=== PATIENT | male | born 1980 | race Hispanic/Latino ===

== ENCOUNTER 2020-05-30 19:20 | Emergency (ER) | payer SELFPAY ==
[2020-05-30] MEDS ORDERED: ACETAMINOPHEN-CODEINE 300/30MG TAB ONE ×2 (19:51→20:57)
[2020-05-30] MEDS ORDERED: DEXAMETHASONE SOD PHOSPHATE 10MG/ML 1ML VIAL ONE (20:23)
[2020-05-30] MEDS ORDERED: CEFTRIAXONE SODIUM 1 GM ONE (20:23)
[2020-05-30] MEDS ORDERED: AZITHROMYCIN 250 MG TABLET PO ONE (20:24)
[2020-05-30] MEDS ORDERED: SODIUM CHLORIDE 0.9% 1000ML 2,000 ML IV ONE (20:24)
[2020-05-30 20:27] LABS: HEMATOCRIT 43.3 % (42-54); LYMPHOCYTES % (AUTO) 14.5 % (21.0-51.0); MEAN CORPUSCULAR HEMOGLOBIN 28.5 pg (27.0-33.0); MEAN CORPUSCULAR HGB CONC 33.7 g/dL (32.0-36.0); MEAN CORPUSCULAR VOLUME 84.4 fL (79-99); NEUTROPHILS % (AUTO) 77.3 % (40.0-77.0); PLATELET COUNT (AUTO) 155 K/uL (130-400); RED BLOOD CELL COUNT(AUTO) 5.13 MIL/uL (4.50-6.20); RED CELL DISTRIBUTION WIDTH 13.2 % (11.0-15.5); WHITE BLOOD COUNT (AUTO) 4.9 K/uL (4.8-10.8)
[2020-05-30 20:37] LABS: APPEARANCE,URINE Clear (CLEAR); BILIRUBIN,URINE Negative (NEGATIVE); COLOR,URINE Yellow (YELLOW); GLUCOSE, URINE (UA) Negative (NEGATIVE); KETONES,URINE Negative (NEGATIVE); LEUKOCYTE ESTERASE ,URINE Negative (NEGATIVE); NITRATE,URINE Negative (NEGATIVE); OCCULT BLOOD,URINE Negative (NEGATIVE); PROTEIN,URINE POS 2+ mg/dL (NEGATIVE)
[2020-05-30 20:38] LABS: INR 1.04 (0.85-1.15); PROTHROMBIN TIME 11.1 SEC (9.6-11.6)
[2020-05-30 20:39] LABS: PARTIAL THROMBOPLASTIN TIME 32.1 SEC (26.3-35.5)
[2020-05-30 20:47] LABS: B-TYPE NATRIURETIC PEPTIDE 21 pg/mL (0-100)
[2020-05-30 20:50] LABS: CREATININE 1.1 mg/dL (0.5-1.5)
[2020-05-30 20:53] LABS: BACTERIA,URINE Few /HPF (None Seen); MUCUS,URINE Moderate LPF (None Seen); RBC,URINE 0-1 /HPF (0-1); SQUAMOUS EPITHELIAL CELL,UR Few /HPF (0-2); WBC,URINE 0-1 /HPF (0-1)
[2020-05-30 20:55] LABS: ALBUMIN 3.9 g/dL (3.5-5.0); BILIRUBIN,TOTAL 0.4 mg/dL (0.2-1.0); TOTAL PROTEIN, SERUM 7.9 g/dL (6.0-8.3)
[2020-05-30 21:00] LABS: RAPID GROUP A STREP NEGATIVE (NEGATIVE)
[2020-05-30 21:28] LABS: ABG BASE EXCESS -1.1 mmol/L (-2.0-3.0); ABG HCO3 22.6 mmol/L (21.0-28.0); ABG OXYGEN SATURATION 94.2 % (95.0-99.0); ABG PCO2 35 mmHg (35-48)
== END 2020-05-30 21:57 | disposition home or self-care (01) ==
LOC: EDH 19:20
DX: U07.1 COVID-19 (principal); E86.0 Dehydration
CPT/HCPCS: 36415; 36600; 71045; 80053; 81001; 82550; 82803; 83605; 83880; 84145; 84484; 85025; 85610; 85730; 87040 ×2; 87426; 87804 ×2; 87880; 93005; 96374; 96375; 99285; J0696; J1100; J7030

== ENCOUNTER 2020-06-02 17:39 | Emergency (ER) | payer OTHER, SELFPAY ==
[2020-06-02 18:44] LABS: BASOPHILS % (AUTO) 0.2 % (0.0-5.0); HEMATOCRIT 45.7 % (42-54); MEAN CORPUSCULAR HEMOGLOBIN 29.1 pg (27.0-33.0); MEAN CORPUSCULAR HGB CONC 33.9 g/dL (32.0-36.0); MEAN CORPUSCULAR VOLUME 85.9 fL (79-99); MONOCYTES % (AUTO) 5.6 % (3.0-13.0); NEUTROPHILS % (AUTO) 87.8 % (40.0-77.0); PLATELET COUNT (AUTO) 229 K/uL (130-400); RED BLOOD CELL COUNT(AUTO) 5.32 MIL/uL (4.50-6.20); RED CELL DISTRIBUTION WIDTH 13.3 % (11.0-15.5); WHITE BLOOD COUNT (AUTO) 10.3 K/uL (4.8-10.8)
[2020-06-02] MEDS ORDERED: GUAIFENESIN-CODEINE 5 ML SYRUP ONE (18:44)
[2020-06-02 19:10] LABS: ALBUMIN 3.8 g/dL (3.5-5.0); BILIRUBIN,TOTAL 0.6 mg/dL (0.2-1.0); CRP QUANTITATIVE 130.5 mg/L (0.00-9.0); TOTAL PROTEIN, SERUM 9.2 g/dL (6.0-8.3)
[2020-06-02 19:15] LABS: B-TYPE NATRIURETIC PEPTIDE 23 pg/mL (0-100)
== END 2020-06-02 19:25 | disposition home or self-care (01) ==
LOC: EDH 17:39
DX: U07.1 COVID-19 (principal)
CPT/HCPCS: 36415; 71045; 80053; 83880; 84484; 85025; 86140

== ENCOUNTER 2020-06-04 16:48 | Inpatient (IN) | payer OTHER, SELFPAY ==
[~2020-06-04] VITALS: Ht 172.7 cm; Wt 87.1 kg
[2020-06-04 17:16] LABS: ABG BASE EXCESS 0.3 mmol/L (-2.0-3.0); ABG HCO3 23.4 mmol/L (21.0-28.0); ABG OXYGEN SATURATION 93.1 % (95.0-99.0); ABG PCO2 34 mmHg (35-48)
[2020-06-04] MEDS ORDERED: ACETAMINOPHEN WITH CODEINE 1 TAB TAB ONE (17:31)
[2020-06-04] MEDS ORDERED: LORAZEPAM 0.5 MG TABLET ONE (17:31)
[2020-06-04 17:36] LABS: BASOPHILS % (AUTO) 0.1 % (0.0-5.0); HEMATOCRIT 42.7 % (42-54); LYMPHOCYTES % (AUTO) 5.7 % (21.0-51.0); MEAN CORPUSCULAR HGB CONC 33.5 g/dL (32.0-36.0); MEAN CORPUSCULAR VOLUME 83.6 fL (79-99); MONOCYTES % (AUTO) 4.1 % (3.0-13.0); NEUTROPHILS % (AUTO) 89.1 % (40.0-77.0); PLATELET COUNT (AUTO) 314 K/uL (130-400); RED BLOOD CELL COUNT(AUTO) 5.11 MIL/uL (4.50-6.20); RED CELL DISTRIBUTION WIDTH 13.3 % (11.0-15.5); WHITE BLOOD COUNT (AUTO) 9.6 K/uL (4.8-10.8)
[2020-06-04 17:46] LABS: INR 1.07 (0.85-1.15); PROTHROMBIN TIME 11.4 SEC (9.6-11.6)
[2020-06-04 17:47] LABS: PARTIAL THROMBOPLASTIN TIME 26.6 SEC (26.3-35.5)
[2020-06-04 17:52] LABS: CREATININE 0.9 mg/dL (0.5-1.5); POTASSIUM 4.2 mmol/L (3.5-5.1)
[2020-06-04 17:56] LABS: BILIRUBIN,TOTAL 0.7 mg/dL (0.2-1.0); TOTAL PROTEIN, SERUM 8.5 g/dL (6.0-8.3)
[2020-06-04 18:10] LABS: B-TYPE NATRIURETIC PEPTIDE 11 pg/mL (0-100)
[2020-06-04] MEDS ORDERED: GUAIFENESIN-CODEINE 5 ML SYRUP PO PRN (22:15)
[2020-06-04] MEDS: DEXAMETHASONE SOD PHOSPHATE 4 MG/ML 1ML VIAL IVP SCH (22:15)
[2020-06-04] MEDS ORDERED: ONDANSETRON 4MG INJ IV PRN (22:15)
[2020-06-04] MEDS: DOXYCYCLINE 100MG+NS 250ML IV SCH (22:15)
[2020-06-04] MEDS ORDERED: ERGOCALCIFEROL (VITAMIN D2) 50,000 UNIT CAPSULE PO ONE (22:15)
[2020-06-04] MEDS: CEFTRIAXONE 1G VIAL IVP SCH (22:15)
[2020-06-04] MEDS ORDERED: PHARMACY COMMUNICATION MISC SCH (22:45)
[2020-06-04 23:30] LABS: HEMOGLOBIN A1C 6.1 % (4.0-6.0)
[2020-06-04] MEDS ORDERED: DEXAMETHASONE SOD PHOSPHATE 10MG/ML 1ML VIAL ONE (23:38)
[2020-06-04] MEDS ORDERED: CEFTRIAXONE 1G VIAL ONE (23:39)
[2020-06-04] MEDS ORDERED: DOXYCYCLINE 100MG+NS 250ML 250 ML IV ONE (23:39)
[2020-06-04] MEDS ORDERED: ERGOCALCIFEROL (VITAMIN D2) 50,000 UNIT CAPSULE ONE (23:39)
[2020-06-05] MEDS ORDERED: 0.9% NACL 250ML 250 ML IV ONE (02:14)
[2020-06-05 04:48] LABS: BASOPHILS % (AUTO) 0.4 % (0.0-5.0); HEMATOCRIT 42.2 % (42-54); LYMPHOCYTES % (AUTO) 9.3 % (21.0-51.0); MEAN CORPUSCULAR HEMOGLOBIN 28.4 pg (27.0-33.0); MEAN CORPUSCULAR HGB CONC 33.6 g/dL (32.0-36.0); MEAN CORPUSCULAR VOLUME 84.4 fL (79-99); MONOCYTES % (AUTO) 4.7 % (3.0-13.0); NEUTROPHILS % (AUTO) 84.6 % (40.0-77.0); PLATELET COUNT (AUTO) 298 K/uL (130-400); RED CELL DISTRIBUTION WIDTH 13.3 % (11.0-15.5); WHITE BLOOD COUNT (AUTO) 8.4 K/uL (4.8-10.8)
[2020-06-05] MEDS ORDERED: GUAIFENESIN-CODEINE 5 ML SYRUP ONE ×2 (05:02→22:59)
[2020-06-05 05:16] LABS: ALBUMIN 3.3 g/dL (3.5-5.0); BILIRUBIN,TOTAL 0.6 mg/dL (0.2-1.0); CREATININE 0.9 mg/dL (0.5-1.5); POTASSIUM 4.3 mmol/L (3.5-5.1); TOTAL PROTEIN, SERUM 7.8 g/dL (6.0-8.3)
[2020-06-05] MEDS ORDERED: ASCORBIC ACID 500 MG TAB ONE (08:33)
[2020-06-05] MEDS ORDERED: CEFTRIAXONE 1G VIAL ONE ×2 (08:34→22:50)
[2020-06-05] MEDS ORDERED: ZINC SULFATE 220 CAPSULE ONE (08:34)
[2020-06-05] MEDS ORDERED: ENOXAPARIN SODIUM 40 MG/0.4 ML SYRINGE SQ ONE (08:34)
[2020-06-05] MEDS ORDERED: FAMOTIDINE 20MG TAB ONE (08:34)
[2020-06-05] MEDS ORDERED: 0.9%NACL 100ML 100 ML IV ONE (08:35)
[2020-06-05] MEDS: ASCORBIC ACID 500 MG TAB PO SCH (09:00)
[2020-06-05] MEDS: ZINC SULFATE 220 CAPSULE PO SCH (09:00)
[2020-06-05] MEDS: FAMOTIDINE 20MG TAB PO SCH ×2 (09:00→21:00)
[2020-06-05] MEDS ORDERED: ENOXAPARIN SODIUM 40 MG/0.4 ML SYRINGE SQ SCH (09:00)
[2020-06-05] MEDS: CEFTRIAXONE 1G VIAL IVP SCH ×2 (10:15→22:15)
[2020-06-05] MEDS: DOXYCYCLINE 100MG+NS 250ML IV SCH ×2 (10:15→22:15)
[2020-06-05] MEDS ORDERED: DOXYCYCLINE 100MG+NS 250ML 250 ML IV ONE ×2 (12:16→22:50)
[2020-06-05] MEDS ORDERED: REMDESIVIR (EUA) 520 200 MG in 0.9% NACL 250ML 250 ML IV ONE (16:00)
[2020-06-05] MEDS ORDERED: COMPOUND IV REFRIGERATED 1 EACH IVSOLN MISC PRN (16:00)
[2020-06-05] MEDS: DEXAMETHASONE SOD PHOSPHATE 4 MG/ML 1ML VIAL IVP SCH (22:15)
[2020-06-05] MEDS ORDERED: DEXAMETHASONE SOD PHOSPHATE 4 MG/ML 1ML VIAL ONE (22:50)
[2020-06-06 04:40] LABS: BASOPHILS % (AUTO) 0.4 % (0.0-5.0); HEMATOCRIT 44.9 % (42-54); LYMPHOCYTES % (AUTO) 11.8 % (21.0-51.0); MEAN CORPUSCULAR HEMOGLOBIN 28.3 pg (27.0-33.0); MEAN CORPUSCULAR VOLUME 85.9 fL (79-99); PLATELET COUNT (AUTO) 366 K/uL (130-400); RED BLOOD CELL COUNT(AUTO) 5.23 MIL/uL (4.50-6.20); RED CELL DISTRIBUTION WIDTH 13.3 % (11.0-15.5); WHITE BLOOD COUNT (AUTO) 8.5 K/uL (4.8-10.8)
[2020-06-06 05:02] LABS: BILIRUBIN,TOTAL 0.4 mg/dL (0.2-1.0); CREATININE 0.9 mg/dL (0.5-1.5); CRP QUANTITATIVE 66.2 mg/L (0.00-9.0); POTASSIUM 4.6 mmol/L (3.5-5.1); TOTAL PROTEIN, SERUM 8.2 g/dL (6.0-8.3)
[2020-06-06] MEDS: PHARMACY COMMUNICATION MISC SCH (06:00)
[2020-06-06] MEDS: ZINC SULFATE 220 CAPSULE PO SCH (09:00)
[2020-06-06] MEDS: ASCORBIC ACID 500 MG TAB PO SCH (09:00)
[2020-06-06] MEDS: FAMOTIDINE 20MG TAB PO SCH ×2 (09:00→21:00)
[2020-06-06] MEDS ORDERED: ASCORBIC ACID 500 MG TAB ONE (09:01)
[2020-06-06] MEDS ORDERED: ENOXAPARIN SODIUM 40 MG/0.4 ML SYRINGE SQ ONE ×2 (09:02→22:04)
[2020-06-06] MEDS ORDERED: ZINC SULFATE 220 CAPSULE ONE (09:02)
[2020-06-06] MEDS ORDERED: FAMOTIDINE 20MG TAB ONE ×2 (09:02→22:03)
[2020-06-06] MEDS ORDERED: 0.9%NACL 100ML 100 ML IV ONE (09:54)
[2020-06-06] MEDS ORDERED: CEFTRIAXONE 1G VIAL ONE ×2 (09:54→22:04)
[2020-06-06] MEDS ORDERED: DOXYCYCLINE 100MG+NS 250ML 250 ML IV ONE ×2 (10:03→22:04)
[2020-06-06] MEDS: DOXYCYCLINE 100MG+NS 250ML IV SCH ×2 (10:15→22:15)
[2020-06-06] MEDS: CEFTRIAXONE 1G VIAL IVP SCH ×2 (10:15→22:15)
[2020-06-06] MEDS ORDERED: BENZONATATE 100 MG CAPSULE PO PRN (15:30)
[2020-06-06] MEDS ORDERED: GUAIFENESIN-DM 200/20 MG 10 ML PO PRN (15:30)
[2020-06-06] MEDS: REMDESIVIR (EUA) 520 100 MG in 0.9% NACL 250ML 250 ML IV SCH (16:00)
[2020-06-06] MEDS ORDERED: GUAIFENESIN-CODEINE 5 ML SYRUP ONE (20:50)
[2020-06-06] MEDS: ENOXAPARIN SODIUM 40 MG/0.4 ML SYRINGE SQ SCH (21:00)
[2020-06-06] MEDS ORDERED: DEXAMETHASONE SOD PHOSPHATE 4 MG/ML 1ML VIAL ONE (22:03)
[2020-06-06] MEDS: DEXAMETHASONE SOD PHOSPHATE 4 MG/ML 1ML VIAL IVP SCH (22:15)
[2020-06-07] MEDS: PHARMACY COMMUNICATION MISC SCH (06:00)
[2020-06-07 06:38] LABS: BASOPHILS % (AUTO) 0.4 % (0.0-5.0); HEMATOCRIT 45.9 % (42-54); LYMPHOCYTES % (AUTO) 10.1 % (21.0-51.0); MEAN CORPUSCULAR HEMOGLOBIN 28.6 pg (27.0-33.0); MEAN CORPUSCULAR HGB CONC 32.9 g/dL (32.0-36.0); MEAN CORPUSCULAR VOLUME 86.9 fL (79-99); MONOCYTES % (AUTO) 3.9 % (3.0-13.0); NEUTROPHILS % (AUTO) 82.6 % (40.0-77.0); PLATELET COUNT (AUTO) 440 K/uL (130-400); RED BLOOD CELL COUNT(AUTO) 5.28 MIL/uL (4.50-6.20); RED CELL DISTRIBUTION WIDTH 13.2 % (11.0-15.5); WHITE BLOOD COUNT (AUTO) 9.7 K/uL (4.8-10.8)
[2020-06-07 06:59] LABS: ALBUMIN 2.9 g/dL (3.5-5.0); BILIRUBIN,TOTAL 0.4 mg/dL (0.2-1.0); CREATININE 0.8 mg/dL (0.5-1.5); CRP QUANTITATIVE 28.7 mg/L (0.00-9.0); POTASSIUM 4.5 mmol/L (3.5-5.1); TOTAL PROTEIN, SERUM 7.9 g/dL (6.0-8.3)
[2020-06-07] MEDS: ZINC SULFATE 220 CAPSULE PO SCH (09:00)
[2020-06-07] MEDS: ASCORBIC ACID 500 MG TAB PO SCH (09:00)
[2020-06-07] MEDS: ENOXAPARIN SODIUM 40 MG/0.4 ML SYRINGE SQ SCH ×2 (09:00→21:00)
[2020-06-07] MEDS: FAMOTIDINE 20MG TAB PO SCH ×2 (09:00→21:00)
[2020-06-07] MEDS ORDERED: ASCORBIC ACID 500 MG TAB ONE (09:36)
[2020-06-07] MEDS ORDERED: FAMOTIDINE 20MG TAB ONE ×2 (09:37→21:07)
[2020-06-07] MEDS ORDERED: ENOXAPARIN SODIUM 40 MG/0.4 ML SYRINGE SQ ONE ×2 (09:37→21:07)
[2020-06-07] MEDS ORDERED: ZINC SULFATE 220 CAPSULE ONE (09:37)
[2020-06-07] MEDS ORDERED: CEFTRIAXONE 1G VIAL ONE ×2 (09:41→21:08)
[2020-06-07] MEDS ORDERED: 0.9%NACL 50ML 50 ML IV ONE (09:43)
[2020-06-07] MEDS ORDERED: DOXYCYCLINE 100MG+NS 250ML 250 ML IV ONE ×2 (10:10→21:07)
[2020-06-07] MEDS: CEFTRIAXONE 1G VIAL IVP SCH ×2 (10:15→22:15)
[2020-06-07] MEDS: DOXYCYCLINE 100MG+NS 250ML IV SCH ×2 (10:15→22:15)
[2020-06-07] MEDS: REMDESIVIR (EUA) 520 100 MG in 0.9% NACL 250ML 250 ML IV SCH (16:00)
[2020-06-07] MEDS ORDERED: DEXAMETHASONE SOD PHOSPHATE 4 MG/ML 1ML VIAL ONE (21:07)
[2020-06-07] MEDS: DEXAMETHASONE SOD PHOSPHATE 4 MG/ML 1ML VIAL IVP SCH (22:15)
[2020-06-08] MEDS: PHARMACY COMMUNICATION MISC SCH (06:00)
[2020-06-08] MEDS ORDERED: ASCORBIC ACID 500 MG TAB ONE (08:54)
[2020-06-08] MEDS ORDERED: DOXYCYCLINE 100MG+NS 250ML 250 ML IV ONE ×2 (08:55→22:32)
[2020-06-08] MEDS ORDERED: CEFTRIAXONE 1G VIAL ONE ×2 (08:55→22:32)
[2020-06-08] MEDS ORDERED: FAMOTIDINE 20MG TAB ONE ×2 (08:55→20:20)
[2020-06-08] MEDS ORDERED: ZINC SULFATE 220 CAPSULE ONE (08:55)
[2020-06-08] MEDS: ZINC SULFATE 220 CAPSULE PO SCH (09:00)
[2020-06-08] MEDS: ASCORBIC ACID 500 MG TAB PO SCH (09:00)
[2020-06-08] MEDS: FAMOTIDINE 20MG TAB PO SCH ×2 (09:00→21:00)
[2020-06-08] MEDS: ENOXAPARIN SODIUM 40 MG/0.4 ML SYRINGE SQ SCH ×2 (09:00→21:00)
[2020-06-08] MEDS: DOXYCYCLINE 100MG+NS 250ML IV SCH ×2 (10:15→22:15)
[2020-06-08] MEDS: CEFTRIAXONE 1G VIAL IVP SCH ×2 (10:15→22:15)
[2020-06-08] MEDS ORDERED: ENOXAPARIN SODIUM 40 MG/0.4 ML SYRINGE SQ ONE ×2 (12:50→20:21)
[2020-06-08 13:35] LABS: ALBUMIN 3.1 g/dL (3.5-5.0); BILIRUBIN,DIRECT 0.1 mg/dL (0.0-0.3); BILIRUBIN,TOTAL 0.4 mg/dL (0.2-1.0); CREATININE 0.9 mg/dL (0.5-1.5); POTASSIUM 4.2 mmol/L (3.5-5.1); TOTAL PROTEIN, SERUM 8.1 g/dL (6.0-8.3)
[2020-06-08] MEDS: REMDESIVIR (EUA) 520 100 MG in 0.9% NACL 250ML 250 ML IV SCH (16:00)
[2020-06-08] MEDS: DEXAMETHASONE SOD PHOSPHATE 4 MG/ML 1ML VIAL IVP SCH (22:15)
[2020-06-08] MEDS ORDERED: DEXAMETHASONE SOD PHOSPHATE 10MG/ML 1ML VIAL ONE (22:32)
[2020-06-09 04:34] LABS: BASOPHILS % (AUTO) 0.5 % (0.0-5.0); EOSINOPHILS % (AUTO) 0.1 % (0.0-8.0); HEMATOCRIT 47.3 % (42-54); LYMPHOCYTES % (AUTO) 10.6 % (21.0-51.0); MEAN CORPUSCULAR HEMOGLOBIN 28.3 pg (27.0-33.0); MEAN CORPUSCULAR VOLUME 85.8 fL (79-99); MONOCYTES % (AUTO) 4.3 % (3.0-13.0); NEUTROPHILS % (AUTO) 80.4 % (40.0-77.0); PLATELET COUNT (AUTO) 440 K/uL (130-400); RED BLOOD CELL COUNT(AUTO) 5.51 MIL/uL (4.50-6.20)
[2020-06-09 04:50] VITALS: BP 127/86
[2020-06-09 05:03] LABS: ALBUMIN 3.3 g/dL (3.5-5.0); BILIRUBIN,DIRECT 0.1 mg/dL (0.0-0.3); BILIRUBIN,TOTAL 0.4 mg/dL (0.2-1.0); CREATININE 0.9 mg/dL (0.5-1.5); CRP QUANTITATIVE 4.5 mg/L (0.00-9.0); POTASSIUM 5.3 mmol/L (3.5-5.1); TOTAL PROTEIN, SERUM 7.6 g/dL (6.0-8.3)
[2020-06-09] MEDS: PHARMACY COMMUNICATION MISC SCH (05:20)
[2020-06-09 08:00] VITALS: BP 126/66
[2020-06-09] MEDS ORDERED: KAYEXALATE 15GM/60ML PO SCH (08:15)
[2020-06-09] MEDS: FAMOTIDINE 20MG TAB PO SCH ×2 (08:16→20:38)
[2020-06-09] MEDS: ASCORBIC ACID 500 MG TAB PO SCH (08:17)
[2020-06-09] MEDS: ZINC SULFATE 220 CAPSULE PO SCH (08:17)
[2020-06-09] MEDS: ENOXAPARIN SODIUM 40 MG/0.4 ML SYRINGE SQ SCH (08:18)
[2020-06-09] MEDS: DOXYCYCLINE 100MG+NS 250ML IV SCH (08:18)
[2020-06-09] MEDS: CEFTRIAXONE 1G VIAL IVP SCH (08:22)
[2020-06-09 12:00] VITALS: BP 129/90
[2020-06-09 16:00] VITALS: BP 117/72
[2020-06-09 16:41] LABS: ALBUMIN 3.2 g/dL (3.5-5.0); BILIRUBIN,DIRECT 0.1 mg/dL (0.0-0.3); BILIRUBIN,TOTAL 0.4 mg/dL (0.2-1.0); TOTAL PROTEIN, SERUM 7.7 g/dL (6.0-8.3)
[2020-06-09 20:21] VITALS: BP 112/68
[2020-06-09] MEDS: APIXABAN 2.5 MG TABLET PO SCH (20:38)
[2020-06-09] MEDS: DEXAMETHASONE SOD PHOSPHATE 4 MG/ML 1ML VIAL IVP SCH (20:38)
[2020-06-10 00:02] VITALS: BP 107/62
[2020-06-10 04:30] VITALS: BP 129/51
[2020-06-10 06:09] LABS: BASOPHILS % (AUTO) 0.5 % (0.0-5.0); HEMATOCRIT 47.5 % (42-54); LYMPHOCYTES % (AUTO) 11.2 % (21.0-51.0); MEAN CORPUSCULAR HEMOGLOBIN 28.1 pg (27.0-33.0); MEAN CORPUSCULAR HGB CONC 32.4 g/dL (32.0-36.0); MEAN CORPUSCULAR VOLUME 86.7 fL (79-99); MONOCYTES % (AUTO) 4.4 % (3.0-13.0); NEUTROPHILS % (AUTO) 79.6 % (40.0-77.0); PLATELET COUNT (AUTO) 477 K/uL (130-400); RED BLOOD CELL COUNT(AUTO) 5.48 MIL/uL (4.50-6.20); RED CELL DISTRIBUTION WIDTH 13.1 % (11.0-15.5); WHITE BLOOD COUNT (AUTO) 8.5 K/uL (4.8-10.8)
[2020-06-10 06:29] LABS: ALBUMIN 3.3 g/dL (3.5-5.0); BILIRUBIN,TOTAL 0.6 mg/dL (0.2-1.0); CREATININE 0.8 mg/dL (0.5-1.5); CRP QUANTITATIVE 7.4 mg/L (0.00-9.0); POTASSIUM 4.6 mmol/L (3.5-5.1)
[2020-06-10 08:00] VITALS: BP 115/68
[2020-06-10] MEDS: ASCORBIC ACID 500 MG TAB PO SCH (08:21)
[2020-06-10] MEDS: ZINC SULFATE 220 CAPSULE PO SCH (08:21)
[2020-06-10] MEDS: APIXABAN 2.5 MG TABLET PO SCH (08:23)
[2020-06-10] MEDS: FAMOTIDINE 20MG TAB PO SCH (08:23)
[2020-06-10] MEDS ORDERED: DEXAMETHASONE 4 MG TAB PO SCH (09:00)
[2020-06-10] MEDS ORDERED: APIX2.5T PO (11:37)
[2020-06-10] MEDS ORDERED: DEXA6TAB PO (11:37)
[2020-06-10] MEDS ORDERED: PANT40TA55 PO (11:37)
[2020-06-10 11:50] VITALS: BP 116/77
[2020-06-11 11:13] LABS: HEPATITIS A ANTIBODY IGM Negative (Negative); HEPATITIS B CORE IGM Negative (Negative); HEPATITIS Bs ANTIGEN SCREEN P Negative (Negative)
== END 2020-06-10 13:56 | disposition home or self-care (01) | DRG 177 ==
LOC: EDH 16:48 → EDHIP 16:49 → 2AH 06-09 03:10
PROVIDERS: ADMIT Internal Medicine; ATTEND Internal Medicine
PROC: XW13325 Transfusion of Convalescent Plasma (Nonautologous) into Peripheral Vein, Percutaneous Approach, New Technology Group 5 (ICD-10-PCS; principal; 2020-06-05)
PROC: XW033E5 Introduction of Remdesivir Anti-infective into Peripheral Vein, Percutaneous Approach, New Technology Group 5 (ICD-10-PCS; 2020-06-05)
DX: U07.1 COVID-19 (principal); J96.01 Acute respiratory failure with hypoxia; J12.82 Pneumonia due to coronavirus disease 2019; E87.3 Alkalosis; J98.11 Atelectasis; E88.09 Other disorders of plasma-protein metabolism, not elsewhere classified; E87.8 Other disorders of electrolyte and fluid balance, not elsewhere classified; K75.9 Inflammatory liver disease, unspecified; R73.9 Hyperglycemia, unspecified
CPT/HCPCS: 36415; 36600; 71045; 76705; 80048; 80053; 80074; 80076; 82248; 82550; 82803; 82948; 83036; 83605; 83615; 83880; 84145; 84484; 85025; 85378; 85610; 85730; 86140; 86850; 86900; 86901; 86927; 87040; 87426; 94760; 99291; G0378; J0696; J1100; J1650; J3490; J7050; J8540